=== PATIENT | female | born 1970 | race Caucasian/White ===

== ENCOUNTER 2021-02-17 09:41 | Emergency (ER) | payer OTHER, SELFPAY ==
[~2021-02-17] VITALS: Ht 165.1 cm; Wt 79.4 kg
[2021-02-17 09:41] VITALS: BP_SYST 124
--- NOTE | 2021-02-17 09:41 | NUR ---
BROUGHT INTO OUTSIDE TRIAGE TENT AND TRIAGED. AWAITING AVAILABLE ER BED.
--- NOTE | 2021-02-17 09:52 | NUR ---
ER at bedside examining patient.
[2021-02-17] MEDS ORDERED: CASIRIVIMAB 600 MG, IMDEVIMAB 600 MG in NS 250 ML IV ONE (10:00)
--- NOTE | 2021-02-17 10:32 | NUR ---
PT STILL AWAITING OPEN ER BED.
--- NOTE | 2021-02-17 12:22 | NUR ---
BROUGHT PT BACK INTO ROOM, REPORTS COUGH, HEADACHE, AND GENERALIZED BODYACHE FOR 2 DAYS WORSENING. VERBALIZED SHE HAS A POSITIVE TEST AND HERE AFTER HER PCP TOLD HER SHE CAN GET "MEDICATION TO HELP HER COVID" PT AAOX4, IN NAD. RESP EVEN AND UNLABORED, ON RA @98% DENIES ANY SOB OR CP. SKIN W/D/I. DENIES ANY N/V/D
[2021-02-17] MEDS ORDERED: IBUPROFEN 800 MG TABLET ONE (12:34)
--- NOTE | 2021-02-17 13:36 | NUR ---
PT SITTING UP IN BED, IV REGN INFUSING WELL VIA PUMP. PT TALKING AND TEXTING ON PHONE. VSS, SR ON MONITOR.
--- NOTE | 2021-02-17 13:51 | NUR ---
PT REPORTS NAUSEA, REQUESTING CRACKERS. DR DYSON INFORMED.
--- NOTE | 2021-02-17 13:52 | NUR ---
REPORT TERRIE HENRIQUEZ RN.
--- NOTE | 2021-02-17 15:02 | NUR ---
Patient given written and verbal discharge instructions and verbalizes understanding. ER MD discussed with patient the results and treatment provided. Patient in stable condition. ID arm band removed. IV catheter removed intact and dressing applied, no active bleeding. Patient educated on pain management and to follow up with PMD. Pain Scale . Opportunity for questions provided and answered. Medication side effect fact sheet provided.
[2021-02-17 15:05] VITALS: BP_SYST 146
== END 2021-02-17 15:02 | disposition home or self-care (01) ==
LOC: SED 09:41
DX: U07.1 COVID-19 (principal)
CPT/HCPCS: 36415; 71045; 87426; 99284; J7050; M0243; Q0243